=== PATIENT | male | born 1980 | race African-American/Black ===

== ENCOUNTER 2018-02-12 00:01 | Emergency (ER) | payer OTHER ==
[~2018-02-12] VITALS: Ht 172.7 cm; Wt 69.0 kg
[~2018-02-12 00:01] MED LIST: ACYC400 PO; IBUP600 PO; Percocet 5-3251 EACH PO; Zofran Odt4 MG PO
== END 2018-02-12 01:17 | disposition home or self-care (01) ==
LOC: ER 00:01
DX: S61.012A Laceration without foreign body of left thumb without damage to nail, initial encounter (principal); W26.0XXA Contact with knife, initial encounter
CPT/HCPCS: 12001; 90471; 90714; 99282-25